=== PATIENT | male | born 1970 | race Caucasian/White ===

== ENCOUNTER → 2021-05-20 | Outpatient (CLI) | payer BC | LOC: KOH-I 10:11 | DX: S82.451A Displaced comminuted fracture of shaft of right fibula, initial encounter for closed fracture (principal) | CPT/HCPCS: 73610 ==

== ENCOUNTER → 2021-06-17 | Outpatient (CLI) | payer BC | LOC: KOH-I 09:03 | DX: S82.401A Unspecified fracture of shaft of right fibula, initial encounter for closed fracture (principal) | CPT/HCPCS: 73610 ==

== ENCOUNTER → 2021-08-06 | Outpatient (CLI) | payer BC | LOC: KOH-I 10:03 | DX: S82.831D Other fracture of upper and lower end of right fibula, subsequent encounter for closed fracture with routine healing (principal) | CPT/HCPCS: 73610 ==

== ENCOUNTER → 2021-09-17 | Outpatient (CLI) | payer BC | LOC: KOH-I 09:34 | DX: S82.831A Other fracture of upper and lower end of right fibula, initial encounter for closed fracture (principal) | CPT/HCPCS: 73610 ==